=== PATIENT | female | born 1980 | race Caucasian/White ===

== ENCOUNTER 2021-04-10 17:16 | Inpatient (IN) ==
[2021-04-10] MEDS ORDERED: LORazepam 2 MG/4 ML VIAL IV STA (18:08)
[2021-04-10] MEDS ORDERED: MULTI-VITAMIN INFUSION 10 ML, THIAMINE HCL 100 MG, FOLIC ACID 1 MG in SODIUM CHLORIDE 0... IV ONE (18:08)
[2021-04-10] MEDS ORDERED: SODIUM CHLORIDE 0.9% 1000ML 1,000 ML IV SCH (18:15)
--- NOTE | 2021-04-10 18:39 | XRay Report ---
XR chest 1V portable CLINICAL HISTORY: OD, tachycardia COMPARISON STUDY: Chest CT October 12, 2012. FINDINGS: Lung volumes are normal. Lungs are clear. There is no pneumothorax or pleural effusion. Car diac size is normal. Mediastinal contours are normal. There is no evidence for pulmonary edema. Old l eft fifth rib fracture is incidentally noted. IMPRESSION: No acute cardiopulmonary findings. ACT 112: Negative or not required by law. Electronically signed by: Omar Paredes M.D. 04/10/2021 6:38 PM
[2021-04-10 19:07] LABS: Basophils # (auto) 0.04 K/uL (0-0.2); Basophils % (auto) 0.5 %; Eosinophils # (auto) 0.02 K/uL (0-0.5); Eosinophils % (auto) 0.3 %; Hematocrit (blood only) 46.7 % (37-47); Hemoglobin 15.7 g/dL (12.0-16.0); Immature Granulocytes # (auto) 0.01 K/uL (0.00-0.02); Immature Granulocytes % (auto) 0.1 %; Lymphocytes % (auto) 24.5 %; Mean Corpuscular Hemoglobin 33.9 pg (25-34); Mean Corpuscular Hgb Conc 33.6 g/dL (32-36); Mean Corpuscular Volume 100.9 fL (80-100); Mean Platelet Volume 9.2 fL (7.4-10.4); Monocytes # (auto) 0.57 K/uL (0.11-0.59); Monocytes % (auto) 7.8 %; Neutrophils # (auto) 4.91 K/uL (1.4-6.5); Neutrophils % (auto) 66.8 %; Platelet Count 128 K/uL (130-400); RDW Coefficient of Variation 15.1 % (11.5-14.5); RDW Standard Deviation 55.6 fL (36.4-46.3); Red Blood Count 4.63 M/uL (4.2-5.4); White Blood Count 7.35 K/uL (4.8-10.8)
[2021-04-10 19:28] LABS: Appearance Urine Turbid (Clear); Bacteria Urine Automated 3+ (Negative); Bilirubin Urine Negative (Negative); Blood Urine 1+ (Negative); Color Urine Yellow; Epithelial Cell Urine Auto >30 /lpf (0-5); Glucose Urine UA Negative (Negative); Ketones Urine 3+ (Negative); Leukocyte Esterase Urine 2+ (Negative); Nitrite Urine Positive (Negative); Protein Urine 1+ (Negative); Urobilinogen Urine Negative (Negative); WBC Urine Automated >30 /hpf (0-5); pH Urine 5.5 (4.5-7.5)
[2021-04-10 19:38] LABS: Acetaminophen < 2 ug/ml (10-30)
[2021-04-10 19:39] LABS: Salicylate < 1.7 mg/dl (2.8-20)
[2021-04-10 19:40] LABS: RBC Urine Automated 0-4 /hpf (0-4)
[2021-04-10 19:42] LABS: Albumin Level 4.2 gm/dl (3.4-5.0); BUN Creatinine Ratio 18.2 (10-20); Calcium 8.5 mg/dl (8.5-10.1); Est GFR (African American) 136.3 ml/min; Est GFR (Non-African American) 117.6 ml/min; Potassium 3.6 mmol/L (3.5-5.1)
[2021-04-10] MEDS ORDERED: cefTRIAXone SODIUM 1,000 MG/50 ML BAG IV STA (19:43)
[2021-04-10 19:50] LABS: Bilirubin,Total 0.7 mg/dl (0.2-1); Globulin 4.2 gm/dl (2.5-4.0); Magnesium 1.3 mg/dl (1.8-2.4); Phosphorus 4.6 mg/dl (2.5-4.9); Thyroid Stimulating Hormone 0.553 uIu/ml (0.300-4.500); Total Protein 8.5 gm/dl (6.4-8.2)
--- NOTE | 2021-04-10 19:52 | CT Scan Report ---
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 CT DOSE: 1459.56 mGycm TECHNIQUE: Helical axial images of the head were obtained without IV contrast. Automated exposure con trol was utilized for the study. A dose lowering technique was utilized adhering to the principles o f ALARA. FINDINGS: This exam is mildly compromised by motion artifact. No acute intracranial hemorrhage, midli ne shift or mass effect is present. The ventricular system is unremarkable. The basal cisterns are pa tent. No extra-axial collections are present. There are no findings to suggest acute dural sinus thro mbosis or acute territorial infarct. No significant calvarial abnormalities are present. Visualized p ortions of the sinuses and mastoid air cells are clear. IMPRESSION: Exam mildly compromised by motion artifact. No acute intracranial findings. ACT 112: Negative or not required by law. Electronically signed by: Omar Paredes M.D. 04/10/2021 7:51 PM
[2021-04-10] MEDS ORDERED: GABAPENTIN 600 MG TAB PO STA (20:02)
[2021-04-10] MEDS ORDERED: cloNIDine HCL 0.1 MG TAB PO ONE (20:04)
[2021-04-10] MEDS ORDERED: POTASSIUM CHLORIDE CRTAB 20 MEQ TABCR PO STA (20:05)
[2021-04-10] MEDS ORDERED: LACTATED RINGER'S 1,000 ML IV ONE (20:06)
[2021-04-10 20:13] LABS: Amphetamines+Metham, Urine Neg (Neg); Barbiturates, Urine Neg (Neg); Benzodiazepine, Urine Neg (Neg); Cocaine, Urine Neg (Neg); MDMA (Ecstacy), Urine Neg (Neg); Methadone, Urine Neg (Neg); Opiate, Urine Neg (Neg); Phencyclidine, Urine Neg (Neg)
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
[2021-04-10] MEDS ORDERED: DEXTROSE 50% 50 ML SYRINGE IV ONE (20:43)
[2021-04-10] MEDS ORDERED: GABAPENTIN 1200MG ALCOHOL WITHDRAWAL LOAD PO STA (21:44)
[2021-04-10] MEDS ORDERED: OPTIRAY 320 125ml IV ONE (21:46)
[2021-04-10 22:10] LABS: Troponin I 0.066 ng/ml (0-0.045)
[2021-04-10] MEDS: MAGNESIUM SULFATE / D5W 1 GM/100 ML BAG IV SCH (22:35)
[2021-04-10] MEDS ORDERED: GADOBUTROL 65ML VIAL IV ONE (23:46)
[2021-04-11] MEDS ORDERED: PROMETHAZINE HCL 12.5 MG in SODIUM CHLORIDE 0.9% 50 ML IV PRN (00:09)
[2021-04-11] MEDS ORDERED: ATIVAN IV ALCOHOL WITHDRAWL IV PRN (00:09)
[2021-04-11] MEDS ORDERED: LORazepam 1 MG/2 ML VIAL IV PRN ×2 (00:09)
[2021-04-11] MEDS ORDERED: oxyCODONE HCL IR 5 MG TAB (IMMEDIATE RELEASE) PO PRN (00:09)
[2021-04-11] MEDS ORDERED: ACETAMINOPHEN 325 MG TAB PO PRN (00:09)
[2021-04-11] MEDS ORDERED: LORazepam 2 MG/4 ML VIAL IV PRN (00:09)
[2021-04-11] MEDS ORDERED: LORazepam 3 MG/6 ML VIAL IV PRN (00:09)
[2021-04-11] MEDS ORDERED: MAGNESIUM SULFATE / D5W 1 GM/100 ML BAG IV ONE (00:30)
--- NOTE | 2021-04-11 00:37 | Emergency Department Note ---
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 IV ceftriaxone. Case will require further management by the hospitalist service was consulted for admission. Patient was made aware of the plan and agreed. Impression & Plan Alcoholic intoxication, UTI (urinary tract infection), Hypomagnesemia Discharge Plan Visit Data Chief Complaint: Mental Health Evaluation Stated Complaint: REFERRED BY DOCTOR, ADDICTION ED Provider: Katie Mendoza Discharge Problem: Alcoholic intoxication, UTI (urinary tract infection), Hypomagnesemia Patient Disposition: Admitted As Inpatient Condition: Good Discharge Instructions Interventions: ED Discharge Assessment Last Done: 04/10/21 23:15 Discharge Problem: Alcoholic intoxication Qualifiers: Complication of substance-induced condition: with unspecified complication Qualified Code(s): F10.929 - Alcohol use, unspecified with intoxication, unspecified UTI (urinary tract infection) Qualifiers: Urinary tract infection type: acute cystitis Hematuria presence: without hematuria Qualified Code(s): N30.00 - Acute cystitis without hematuria
[2021-04-11] MEDS: levETIRAcetam 500 MG TAB PO SCH ×3 (01:04→20:41)
[2021-04-11] MEDS: FOLIC ACID 1 MG TAB PO SCH ×2 (01:04→07:56)
[2021-04-11] MEDS: THIAMINE HCL 100 MG TAB PO SCH ×2 (02:11→07:56)
[2021-04-11] MEDS: MAGNESIUM SULFATE / D5W 1 GM/100 ML BAG IV SCH (03:11)
[2021-04-11] MEDS: GABAPENTIN 600 MG TAB PO SCH ×3 (04:50→16:38)
--- NOTE | 2021-04-11 07:40 | CT Scan Report ---
CT abd pelvis IV con only CLINICAL HISTORY: abd pain COMPARISON STUDY: October 12, 2012 TECHNIQUE: A dose lowering technique was utilized adhering to the principles of ALARA. CT DOSE: 659.86 mGy.cm FINDINGS: Lower chest: Limited evaluation of lung bases shows no evidence of acute abnormalities.. Liver: Diffuse decrease in attenuation of liver parenchyma is seen without evidence of focal lesions or intrahepatic biliary dilatation. Liver is normal in size. Gallbladder: Unremarkable. Spleen: Normal in size and attenuation. Small splenule is seen. Pancreas: Unremarkable. Adrenal glands: Unremarkable. Kidneys: There is symmetric renal cortical enhancement. The kidneys are normal in size without hydron ephrosis. Pelvic viscera: The bladder, and pelvic viscera are unremarkable. Bowel: The small bowel and colon are normal in course and caliber. Appendix is not well seen. Peritoneum: There is no intraperitoneal free air or abdominal ascites. Vasculature: The abdominal aorta is normal in course and caliber. Adenopathy: None. Skeletal structures: No significant degenerative changes. Healing fracture of anterior portion of the right fourth rib is seen. IMPRESSION: 1. No acute intra-abdominal process. 2. Healing fracture of the anterior portion of the right fourth rib. 3. Hepatic steatosis. ACT 112: Negative or not required by law. The above report was generated using voice recognition software. It may contain grammatical, syntax o r spelling errors. Electronically signed by: Marry Owen DO 04/11/2021 7:38 AM
[2021-04-11] MEDS: MULTIVITAMIN TAB PO SCH (07:56)
[2021-04-11] MEDS: FAMOTIDINE 20 MG TAB PO SCH ×2 (07:56→20:41)
--- NOTE | 2021-04-11 07:56 | CT Scan Report ---
CT ANGIOGRAM OF THE CHEST CLINICAL HISTORY: sob COMPARISON STUDY: October 12, 2012 TECHNIQUE: Following the IV administration of 119 mL of Optiray, CT angiogram of the thorax was perfo rmed from the thoracic inlet to the lung bases utilizing the pulmonary embolus protocol. Images are r eviewed in the axial, sagittal, and coronal planes. IV contrast was administered without complication . MIP imaging was performed. A dose lowering technique was utilized adhering to the principles of AL SIVA. CT DOSE: FINDINGS: Opacification within main pulmonary artery is suboptimal for adequate evaluation for pulmonary embolu s. Evaluation of peripheral branches of the pulmonary artery is slightly limited due to respiratory m otion artifact. Small nonocclusive filling defect is seen within left upper lobe branch of the pulmonary artery (4/15 3) which might represent flow artifact or old pulmonary embolus. No evidence of right heart strain. Main pulmonary artery is normal in caliber. No pathologically enlarged axillary mediastinal or hilar lymph nodes were visualized. There was no evidence of thoracic aortic dilatation. Tracheobronchial tree is patent. Patchy areas of groundglass attenuation are seen predominantly within bilateral upper lobes. There is 8mm irregular subpleural nodule within lateral basal segment of the right lower lobe (4/55) and most likely represent infectious inflammatory etiology. No pleural effusion seen. Evaluation of lung parenchyma is limited due to motion artifact. No pleural effusions are visualized. Limited evaluation of upper abdomen shows hepatic steatosis and no evidence of acute process. Osseous structures: Healing fractures of the right and left rib cage. IMPRESSION: 1. Single nonocclusive filling defect is seen within left upper lobe branch of the pulmonary artery, could represent flow artifact or old pulmonary embolus. Overall opacification within main pulmonary artery is suboptimal for adequate evaluation for pulmonary embolus. 2. Patchy ground glass opacities within bilateral upper lobes might represent infectious/inflammator y etiology. 8 mm irregular nodule within right base could also be infectious or inflammatory however neoplastic etiology cannot be completely ruled out. Short-term follow-up with CT of the chest without IV contrast on nonemergency basis in 4-6 weeks is recommended to document resolution. 3. Hepatic steatosis. ACT 112: Positive. There are findings on this exam that require communication between the performing entity and the patient following Patient Test Result Information Act ([place] Act 112) guidelines. The above report was generated using voice recognition software. It may contain grammatical, syntax o r spelling errors. Electronically signed by: Marry Owen DO 04/11/2021 7:54 AM
[2021-04-11 08:33] LABS: Basophils # (auto) 0.02 K/uL (0-0.2); Basophils % (auto) 0.4 %; Eosinophils # (auto) 0.03 K/uL (0-0.5); Eosinophils % (auto) 0.6 %; Hematocrit (blood only) 40.2 % (37-47); Hemoglobin 13.5 g/dL (12.0-16.0); Lymphocytes # (auto) 1.34 K/uL (1.2-3.4); Lymphocytes % (auto) 25.9 %; Mean Corpuscular Hemoglobin 33.2 pg (25-34); Mean Corpuscular Hgb Conc 33.6 g/dL (32-36); Mean Corpuscular Volume 98.8 fL (80-100); Mean Platelet Volume 9.3 fL (7.4-10.4); Monocytes % (auto) 15.5 %; Neutrophils # (auto) 2.98 K/uL (1.4-6.5); Neutrophils % (auto) 57.6 %; Platelet Count 100 K/uL (130-400); RDW Coefficient of Variation 14.9 % (11.5-14.5); RDW Standard Deviation 54.1 fL (36.4-46.3); Red Blood Count 4.07 M/uL (4.2-5.4); White Blood Count 5.17 K/uL (4.8-10.8)
[2021-04-11 09:20] LABS: Alanine Aminotransferase 53 U/L (12-78); Albumin Level 3.4 gm/dl (3.4-5.0); Aspartate Aminotransferase 47 U/L (15-37); BUN Creatinine Ratio 13.9 (10-20); Blood Urea Nitrogen 5 mg/dl (7-18); Calcium 7.8 mg/dl (8.5-10.1); Carbon Dioxide 24 mmol/L (21-32); Chloride 104 mmol/L (98-107); Est GFR (African American) > 150.0 ml/min; Est GFR (Non-African American) 139.4 ml/min; Glucose 71 mg/dl (70-99); Magnesium 2.3 mg/dl (1.8-2.4); Sodium 137 mmol/L (136-145)
[2021-04-11 09:34] LABS: Alkaline Phosphatase 107 U/L (45-117); Bilirubin,Total 1.1 mg/dl (0.2-1); Globulin 3.6 gm/dl (2.5-4.0); Troponin I 0.094 ng/ml (0-0.045)
--- NOTE | 2021-04-11 13:07 | Magnetic Resonance Report ---
MRI OF THE BRAIN WITHOUT AND WITH IV CONTRAST CLINICAL HISTORY: sz COMPARISON STUDY: No previous studies for comparison. TECHNIQUE: MRI of the brain was performed from the vertex to the skull base utilizing various T1 and T2 weighted sequences. Following the IV administration of 5.5 mL of Gadavist contrast, additional enh anced images were obtained. FINDINGS: Sagittal T1, axial diffusion, proton density and T2 weighted axial, coronal FLAIR, and pre and post a xial T1-weighted images were acquired. These were supplemented with post gadolinium coronal T1 weight ed images. No intra or extra-axial mass lesions are visualized. Axial diffusion-weighted images reveal no evidence of acute or subacute infarction. There is no evidence of ventricular dilatation. Proton density T2-weighted and FLAIR images reveal no significant abnormalities. There are no abnormal flow voids. There is no evidence of pathologic enhancement. IMPRESSION: 1. No acute intracranial hemorrhage, no midline shift or space-occupying lesions. 2. No evidence of a acute infarct. 3. No evidence of abnormal enhancement. ACT 112: Negative or not required by law. The above report was generated using voice recognition software. It may contain grammatical, syntax o r spelling errors. Electronically signed by: Marry Owen DO 04/11/2021 1:06 PM
[2021-04-11] MEDS ORDERED: LORazepam 2 MG/4 ML VIAL IV STA (13:51)
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
--- NOTE | 2021-04-11 13:52 | Hospitalist Progress Note ---
Date of Service April 11, 2021 Assessment & Plan (1) Alcohol abuse with withdrawal: Plan: Long history of alcohol abuse in her outpatient record upon review. 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 She declines further rehab at this time although this is strongly recommended. Psychiatry is working to set her up with a counselor in the [place] area. Today gave 2mg IV ativan for tremulousness, pressured speech, and anxiety. On re-evaluation several hours later she was much more calm and cooperative. Cont gabapentin taper and PRN Ativan. (2) Seizures: Plan: Recently had seizures witnessed by family on 04/03/21. Brought to [facility] ER by EMS who noted post-ictal state. Although alcohol withdrawal seizures suspected, she was started on Keppra BID at this time. Cont this for now with neurology followup recommended. (3) UTI (urinary tract infection): Plan: No symptoms reported today. Staph species growing in urine. Sensitivities are still pending. Cont empiric ceftriaxone. (4) Mood disorder: Plan: Questionable bipolar disorder in her outpatient record. Outpatient counseling recommended. (5) Elevated troponin: Plan: Likely related to seizures. Patient has no chest pain or clinical syndrome of ACS. Will obtain echocardiogram to be complete and ensure there are no wall motion abnormalitites or other structural issues. (6) DVT prophylaxis: Plan: SCDs/ambulation Full Code Dispo-to home when medically stable Ellen Dorantes DO [facility] and Anticipated Discharge Date Admission Date: April 10, 2021 Subjective 40 yo F with h/o alcoholism presents with seizures x 1 month. No seizure activity overnight Myriam Reports feeling weak generally Tolerating PO Mentating well She states that she is not interested in rehab but is aware she has a problem. Reports feeling "manic" Intermittent numbness in hands and feet Review of Systems Review of Systems: All systems were reviewed and negative except as indicated in HPI above. Physical Exam Physical Exam: CONSTITUTIONAL: WNWD, vitals as above, generally well- appearing EYES: normal conjunctivae, no scleral icterus ENT: external ear and nose normal, MMM, poor dentition. RESPIRATORY: clear to auscultation bilaterally, no crackles, rales or wheezes, normal respiratory effort CARDIOVASCULAR: tachy rate and rhythm, S1 and 2 heard without murmurs, gallops or rubs, no JVD, no peripheral edema GASTROINTESTINAL: soft, nontender, nondistended. MUSCULOSKELETAL: strength 5/5 throughout, head is normocephalic and atraumatic SKIN: warm and dry NEUROLOGIC: CN 2-12 grossly intact, no sensory deficit, normal cognition, pressured speech, + tremor PSYCHIATRIC: alert cooperative and oriented to person, place and time. Euthymic mood, makes good eye contact, language grossly intact, recent and remote memory grossly intact. LYMPHATIC: no LAD Results & Data Results & Data ([facility]) Vital Signs (Past 12 Hours) Vital Signs Temp Pulse Pulse Resp BP Pulse Ox 04/11/21 12:05 36.9 C 104 H 20 156/111 H 98 04/11/21 08:18 36.9 C 106 H 19 148/102 H 99 04/11/21 04:58 36.8 C 78 16 120/77 94 04/11/21 01:50 91 H Laboratory Results Short CBC 04/10/21 04/11/21 Range/Units 18:41 08:03 WBC 7.35 5.17 (4.8-10.8) K/uL Hgb 15.7 13.5 (12.0-16.0) g/dL Hct 46.7 40.2 (37-47) % Plt Count 128 L 100 L (130-400) K/uL BMP 04/10/21 04/11/21 18:41 08:03 Sodium 139 137 Potassium 3.6 4.0 Chloride 101 104 Carbon Dioxide 23 24 BUN 10 5 L D Creatinine 0.57 L 0.34 L Glucose 63 L 71 Calcium 8.5 7.8 L Cardiac Enzymes 04/10/21 04/11/21 Range/Units 18:41 08:03 Troponin I 0.066 H* 0.094 H* (0-0.045) ng/ml Liver Function 04/10/21 04/11/21 Range/Units 18:41 08:03 Total Bilirubin 0.7 1.1 H D (0.2-1) mg/dl AST 55 H 47 H (15-37) U/L ALT 65 53 (12-78) U/L Alkaline Phosphatase 127 H 107 (45-117) U/L Albumin 4.2 3.4 (3.4-5.0) gm/dl Urine 04/10/21 Range/Units 19:00 Urine Color Yellow Urine Appearance Turbid A (Clear) Urine pH 5.5 (4.5-7.5) Ur Specific Thayer 1.020 (1.000-1.030) Urine Protein 1+ H (Negative) Urine Glucose (UA) Negative (Negative) Medications Administered Current Inpatient Medications Acetaminophen (Acetaminophen 325 Mg Tab) 325 mg PO Q6H PRN PRN Reason: Mild Pain Stop: 05/11/21 00:08 Famotidine (Famotidine 20 Mg Tab) 20 mg PO BID [facility] Stop: 05/11/21 08:59 Last Admin: 04/11/21 07:56 Dose: 20 mg Documented by: Folic Acid (Folic Acid 1 Mg Tab) 1 mg PO QAM [facility] Stop: 05/11/21 00:29 Last Admin: 04/11/21 07:56 Dose: 1 mg Documented by: Gabapentin (Gabapentin 600 Mg Tab) 600 mg PO Q8H [facility] Stop: 04/12/21 09:01 Gabapentin (Gabapentin 600 Mg Tab) 600 mg PO Q12H [facility] Stop: 04/13/21 09:01 Gabapentin (Gabapentin 600 Mg Tab) 600 mg PO Q24H [facility] Stop: 04/14/21 09:01 Lorazepam (Ativan) 1 mg in 2 mls @ 2 mls/min IV UD PRN; Protocol PRN Reason: EtOH Withdrawl AWSS Score 6,7 Stop: 05/11/21 00:08 Lorazepam (Ativan) 2 mg in 4 mls @ 4 mls/min IV UD PRN; Protocol PRN Reason: EtOH Withdrawl AWSS Score 8,9 Stop: 05/11/21 00:08 Lorazepam (Ativan) 3 mg in 6 mls @ 4 mls/min IV ONCE PRN; Protocol PRN Reason: EtOH Withdrawl AWSS Score >=10 Stop: 05/11/21 00:08 Promethazine HCl 12.5 mg/ (Sodium Chloride) 50.5 mls @ 202 mls/hr IV Q6H PRN PRN Reason: Nausea And Vomiting Stop: 05/11/21 00:08 Lorazepam (Ativan) 1 mg in 2 mls @ 0.5 mls/min IV Q10M PRN PRN Reason: seizures Stop: 05/11/21 00:08 Ceftriaxone Sodium 1,000 mg/ (Dextrose) 50 mls @ 100 mls/hr IV Q24H [facility]; Protocol Stop: 04/21/21 19:59 Lorazepam (Ativan) 2 mg in 4 mls @ 4 mls/min IV NOW STA Stop: 04/11/21 13:52 Multivitamins 10 ml/ Thiamine HCl 100 mg/ Folic Acid 1 mg/Sodium Chloride 1,011.2 mls @ 1,011.2 mls/hr IV .Q1H ONE Stop: 04/11/21 14:45 Levetiracetam (Levetiracetam 500 Mg Tab) 500 mg PO BID [facility] Stop: 05/11/21 00:29 Last Admin: 04/11/21 07:56 Dose: 500 mg Documented by: Multivitamins (Multivitamin Tab) 1 tab PO [facility] Stop: 05/11/21 08:59 Last Admin: 04/11/21 07:56 Dose: 1 tab Documented by: Oxycodone HCl (Oxycodone Hcl Ir 5 Mg Tab (Immediate Release)) 5 mg PO Q4H PRN PRN Reason: Pain Stop: 04/25/21 00:08 Thiamine HCl (Thiamine Hcl 100 Mg Tab) [facility] Stop: 05/11/21 00:29 Last Admin: 04/11/21 07:56 Dose: 100 mg Documented by:
[2021-04-11] MEDS ORDERED: MULTI-VITAMIN INFUSION 10 ML, THIAMINE HCL 100 MG, FOLIC ACID 1 MG in SODIUM CHLORIDE 0... IV ONE (14:00)
[2021-04-11] MEDS ORDERED: cefTRIAXone SODIUM 1,000 MG in DEXTROSE 5% 50 ML IV SCH (20:00)
[2021-04-12] MEDS: GABAPENTIN 600 MG TAB PO SCH ×3 (00:44→21:28)
[2021-04-12] MEDS ORDERED: POTASSIUM CHLORIDE CRTAB 20 MEQ TABCR PO SCH (09:00)
[2021-04-12] MEDS: SULFAMETHOXAZOLE/TRIMETHOPRIM DS 800/160MG TAB PO SCH ×2 (09:29→21:30)
[2021-04-12] MEDS: THIAMINE HCL 100 MG TAB PO SCH (09:29)
[2021-04-12] MEDS: MAGNESIUM OXIDE 400 MG TAB PO SCH ×2 (09:29→21:38)
[2021-04-12] MEDS: levETIRAcetam 500 MG TAB PO SCH ×2 (09:30→21:28)
[2021-04-12] MEDS: FAMOTIDINE 20 MG TAB PO SCH ×2 (09:30→21:27)
[2021-04-12] MEDS: MULTIVITAMIN TAB PO SCH (09:30)
--- NOTE | 2021-04-12 10:52 | Hospitalist Progress Note ---
Date of Service April 12, 2021 Assessment & Plan (1) Alcohol abuse with withdrawal: Plan: Long history of alcohol abuse in her outpatient record upon review. 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 She declines further rehab at this time although this is strongly recommended. Psychiatry is working to set her up with a counselor in the [place] area. Giving 1mg Ativan PO now for continued withdrawal symptoms. Psychiatry is considering naltrexone as outpatient. (2) Seizures: Plan: Recently had seizures witnessed by family on 04/03/21. Brought to [facility] ER by EMS who noted post-ictal state. Although alcohol withdrawal seizures suspected, she was started on Keppra BID at this time. Cont this for now with neurology followup recommended. (3) Elevated blood pressure reading: Plan: Mild LVH noted on echocardiogram. She is clearly experiencing a stressful event withdrawing from an addiction and recently having seizures. Blood pressure elevated. Hoping to improve this with Ativan now. (4) UTI (urinary tract infection): Plan: Has some urgency to void, denies dysuria recently. Staph species in urine. MSSA. She was transitioned to Bactrim. (5) Mood disorder: Plan: Questionable bipolar disorder in her outpatient record. Outpatient counseling recommended. Appreciate pharmacy input. (6) Elevated troponin: Plan: Likely related to seizures. Patient has no chest pain or clinical syndrome of ACS. No ACS-no acute wall motion abnormalities on echocardiogram. (7) DVT prophylaxis: Plan: SCDs/ambulation Full Code Dispo-to home when medically stable, next 1-2 days. DO [facility] Hospitalist Admission and Anticipated Discharge Date Admission Date: April 10, 2021 Subjective 40 yo F with h/o alcoholism presents with seizures x 1 month. shaky, some nausea this morning that passed wtih soda, feels anxious tearful but appears hopeful. working with psychiatry to coordinate outpatient care. Review of Systems Review of Systems: All systems were reviewed and negative except as indicated in HPI above. Physical Exam Physical Exam: CONSTITUTIONAL: WNWD, vitals as above, generally well- appearing EYES: normal conjunctivae, no scleral icterus ENT: external ear and nose normal, MMM, poor dentition. RESPIRATORY: clear to auscultation bilaterally, no crackles, rales or wheezes, normal respiratory effort CARDIOVASCULAR: regular rate and rhythm, S1 and 2 heard without murmurs, gallops or rubs, no JVD, no peripheral edema GASTROINTESTINAL: soft, nontender, nondistended. MUSCULOSKELETAL: strength 5/5 throughout, head is normocephalic and atraumatic SKIN: warm and dry NEUROLOGIC: CN 2-12 grossly intact, no sensory deficit, normal cognition, pressured speech, + tremor PSYCHIATRIC: alert cooperative and oriented to person, place and time. Euthymic mood, makes good eye contact, language grossly intact, recent and remote memory grossly intact. LYMPHATIC: no LAD Results & Data Results & Data ([facility]) Vital Signs (Past 12 Hours) Vital Signs Temp Pulse Pulse Resp BP Pulse Ox 04/12/21 07:41 36.6 C 74 16 144/96 H 98 04/12/21 03:00 36.6 C 73 18 127/84 99 04/12/21 01:14 92 H 04/11/21 23:42 36.7 C 74 18 147/92 H 99 Medications Administered Current Inpatient Medications Acetaminophen (Acetaminophen 325 Mg Tab) 325 mg PO Q6H PRN PRN Reason: Mild Pain Stop: 05/11/21 00:08 Famotidine (Famotidine 20 Mg Tab) 20 mg PO BID [facility] Stop: 05/11/21 08:59 Last Admin: 04/12/21 09:30 Dose: 20 mg Documented by: Gabapentin (Gabapentin 600 Mg Tab) 600 mg PO Q12H [facility] Stop: 04/13/21 09:01 Gabapentin (Gabapentin 600 Mg Tab) 600 mg PO Q24H [facility] Stop: 04/14/21 09:01 Lorazepam (Ativan) 1 mg in 2 mls @ 2 mls/min IV UD PRN; Protocol PRN Reason: EtOH Withdrawl AWSS Score 6,7 Stop: 05/11/21 00:08 Lorazepam (Ativan) 2 mg in 4 mls @ 4 mls/min IV UD PRN; Protocol PRN Reason: EtOH Withdrawl AWSS Score 8,9 Stop: 05/11/21 00:08 Lorazepam (Ativan) 3 mg in 6 mls @ 4 mls/min IV ONCE PRN; Protocol PRN Reason: EtOH Withdrawl AWSS Score >=10 Stop: 05/11/21 00:08 Promethazine HCl 12.5 mg/ (Sodium Chloride) 50.5 mls @ 202 mls/hr IV Q6H PRN PRN Reason: Nausea And Vomiting Stop: 05/11/21 00:08 Lorazepam (Ativan) 1 mg in 2 mls @ 0.5 mls/min IV Q10M PRN PRN Reason: seizures Stop: 05/11/21 00:08 Ceftriaxone Sodium 1,000 mg/ (Dextrose) 50 mls @ 100 mls/hr IV Q24H [facility]; Protocol Stop: 04/21/21 19:59 Last Infusion: 04/11/21 21:52 Dose: Infused Documented by: Levetiracetam (Levetiracetam 500 Mg Tab) 500 mg PO BID [facility] Stop: 05/11/21 00:29 Last Admin: 04/12/21 09:30 Dose: 500 mg Documented by: Magnesium Oxide (Magnesium Oxide 400 Mg Tab) 400 mg PO BID [facility] Stop: 05/12/21 08:59 Last Admin: 04/12/21 09:29 Dose: 400 mg Documented by: Multivitamins (Multivitamin Tab) [facility] [place] Stop: 05/11/21 08:59 Last Admin: 04/12/21 09:30 Dose: 1 tab Documented by: Oxycodone HCl (Oxycodone Hcl Ir 5 Mg Tab (Immediate Release)) 5 mg PO Q4H PRN PRN Reason: Pain Stop: 04/25/21 00:08 Thiamine HCl (Thiamine Hcl 100 Mg Tab) 100 mg PO QAM [facility] Stop: 05/11/21 00:29 Last Admin: 04/12/21 09:29 Dose: 100 mg Documented by: Trimethoprim/Sulfamethoxazole (Sulfamethoxazole/Trimethoprim Ds 800/160mg Tab) 1 tab PO Q12 [facility] Stop: 04/14/21 21:01 Last Admin: 04/12/21 09:29 Dose: 1 tab Documented by: (1) UTI (urinary tract infection) Hematuria presence: without hematuria
--- NOTE | 2021-04-12 12:53 | Communication Note ---
Date of Service: April 12, 2021 asked liaison to get additional collateral from family with whom patient lives and also for safety planning. Patient does not drive but even orders hand sa nitizer/items to abuse to the house so they have to intercept the mail. She will reportedly use gift cards finds around the house to walk places. Fears patient will have complications or from seizure related to substance abuse. She has "burned bridges" with many outpatient treatment providers, liaison will conitnue to work with patient on this. Mother locks any of their personal items containing ETOH in the car glove compartment. The patient is quite ill in her alcohol dependence and we will again strongly encourage rehab. [place] mental health law only allows involuntary commitment to drug rehab for minors. She has no current legal charges whereby the court could mandate rehab. there is no evidence of claudia or psychosis interfering with the patient's medical decision making. She is very aware that our medical recommendation is rehab. Will review naltrexone trial with primary team. [facility].
[2021-04-12] MEDS ORDERED: LORazepam 1 MG TAB PO STA ×2 (15:12→23:28)
--- NOTE | 2021-04-13 06:19 | Electrocardiogram Report ---
Test Reason : Blood Pressure : / mmHG Vent. Rate : 107 BPM Atrial Rate : 107 BPM P-R Int : 152 ms QRS Dur : 076 ms QT Int : 372 ms P-R-T Axes : 063 101 085 degrees QTc Int : 496 ms Poor data quality, interpretation may be adversely affected Sinus tachycardia Rightward axis Borderline ECG No previous ECGs available Confirmed by Reggie Irvin ([id number]) on 04/13/2021 6:18:55 AM Referred By: REFERRED SELF Confirmed By:Reggie Irvin
[2021-04-13] MEDS: FAMOTIDINE 20 MG TAB PO SCH (09:12)
[2021-04-13] MEDS: levETIRAcetam 500 MG TAB PO SCH (09:12)
[2021-04-13] MEDS: GABAPENTIN 600 MG TAB PO SCH (09:12)
[2021-04-13] MEDS: SULFAMETHOXAZOLE/TRIMETHOPRIM DS 800/160MG TAB PO SCH (09:13)
[2021-04-13] MEDS: MAGNESIUM OXIDE 400 MG TAB PO SCH (09:13)
[2021-04-13] MEDS: MULTIVITAMIN TAB PO SCH (09:14)
[2021-04-13] MEDS: THIAMINE HCL 100 MG TAB PO SCH (09:14)
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
[2021-04-13] MEDS ORDERED: OPTIRAY 320 125ml IV ONE (14:47)
--- NOTE | 2021-04-13 15:12 | CT Scan Report ---
CT ANGIOGRAM OF THE CHEST CLINICAL HISTORY: Dyspnea. COMPARISON STUDY: Chest CT dated 04/10/2021. TECHNIQUE: Following the IV administration of 118 cc of Optiray 320, CT angiogram of the chest was pe rformed from the upper abdomen to the thoracic inlet utilizing the pulmonary embolus protocol. Images are reviewed in the axial, sagittal, and coronal planes. 3-D MIPS images are created and assessed. I V contrast was administered without complication. A dose lowering technique was utilized adhering to the principles of ALARA. CT DOSE: 236.19 mGy.cm FINDINGS: Thyroid: Imaged portions of the thyroid gland are normal in size and attenuation. Thoracic aorta: The thoracic aorta is normal in caliber and demonstrates standard 3-vessel arch anato my. No dissection is seen. Pulmonary vasculature: The pulmonary trunk is normal in caliber. There are no filling defects identif ied in main, lobar, or segmental pulmonary branches to suggest pulmonary embolus. Heart: The heart is normal in size and without pericardial effusion. Lungs and pleural spaces: There is mild patchy groundglass consolidation present bilaterally, greates t in the upper lobes, right greater than left. No pleural effusion is seen. The trachea and central a irways are clear. Mediastinum: There is no mediastinal lymphadenopathy. Crystal: Clear. Axillae: There is no axillary lymphadenopathy. Upper abdomen: Partially visualized upper abdominal viscera is within normal limits. Skeletal structures: No lytic or blastic bony lesions are seen. There are subacute appearing right si ded rib fractures. There are chronic/healed left-sided rib fractures. There are minimal and age indet erminant superior endplate compression deformities of T2 and T5. IMPRESSION: 1. There is no evidence of pulmonary embolus in the main, lobar, or segmental pulmonary arteries. The re was no pulmonary embolism on the 04/10/2021 examination. The questioned abnormality corresponds to m inimal artifact. 2. There is mild patchy groundglass consolidation seen bilaterally, greatest in the upper lobes. The appearance is consistent with a mild infectious/inflammatory pneumonitis. 3. There is no pleural effusion. 4. There are subacute/healing right-sided rib fractures. ACT 112: Negative or not required by law. Electronically signed by: Bunny Hurtado M.D. 04/13/2021 3:11 PM
[2021-04-13] MEDS ORDERED: AMOXICILLIN/CLAVULANATE 875MG HOME PACK PO ONE (19:00)
[2021-04-14] MEDS ORDERED: GABAPENTIN 600 MG TAB PO SCH (09:00)
== END 2021-04-13 20:12 | disposition home or self-care (01) | DRG 896 ==
LOC: ED 17:16 → 2W 21:39